=== PATIENT | female | born 1945 | race Caucasian/White ===

== ENCOUNTER 2025-06-12 11:32 | Emergency (ER) | payer OTHER, BC ==
[~2025-06-12] VITALS: Ht 152.4 cm; Wt 46.3 kg
[2025-06-12] MEDS ORDERED: TOPROL XL100 M1 PO (12:41)
[2025-06-12 14:04] LABS: BASO % 0.2 % (0.1-1.2); EOS # 0.05 (0.04-0.54); EOS % 0.3 % (0.7-7.0); LYMPH # 0.48 (1.18-3.74); LYMPH % 3.3 % (19.3-53.1); MEAN PLATELET VOLUME 11.80 fl (9.4-12.4); MONO # 3.72 (0.24-0.82); NEUT # 10.24 (1.56-6.13); NEUT % 69.8 % (34.0-71.1); RED CELL DISTRIBUTION WIDTH 16.3 % (11.6-14.4)
[2025-06-12 14:15] LABS: MONO % 25.4 % (4.7-12.5)
[2025-06-12 14:34] LABS: INR 1.09
[2025-06-12] MEDS ORDERED: ONDANSETRON HCL 2 MG/ML VIAL IV STA (15:20)
[2025-06-12] MEDS ORDERED: MORPHINE SULFATE 4 MG/ML CARTRIDGE IV STA (15:20)
[2025-06-12] MEDS ORDERED: FAMOTIDINE/PF 20 MG/2 ML VIAL IV STA (15:20)
[2025-06-12] MEDS ORDERED: 0.9 % SODIUM CHLORIDE 1,000 ML IV SCH (15:30)
[2025-06-12 15:40] LABS: ALT/SGPT 271.0 U/L (12-78); AST/SGOT 218.0 U/L (15-37); BILIRUBIN TOTAL 9.29 mg/dL (0.3-1.2); BUN CREA RATIO 30.0 (7.0-25.0); CREATININE SERUM 0.94 mg/dL (0.55-1.02); GFR 57.15; GLOBULINA 4.1 G/DL (2.4-3.5); GLUCOSE FASTING 95.0 mg/dL (65-100); OSMOLALITY SERUM 287.0 MOSM/KG (275-295)
[2025-06-12] MEDS ORDERED: ONDANSETRON HCL 2 MG/ML VIAL ONE (15:44)
[2025-06-12] MEDS ORDERED: FAMOTIDINE/PF 20 MG/2 ML VIAL ONE (15:45)
[2025-06-12 15:46] LABS: URINE APPEARANCE Turbid; URINE BILIRRUBIN Large (NEGATIVE); URINE BLOOD Moderate; URINE COLOR Orange; URINE GLUCOSE Negative (NEGATIVE); URINE LEUKOCYTE Moderate; URINE NITRATE Positive; URINE UROBILINOGEN 1.0 E.U./dl
[2025-06-12 15:50] LABS: URINE BACTERIA 919.1 uL (0.0-1933); URINE CAST 3.66 uL (0.0-1.40); URINE EPITHELIAL CELLS 94.7 uL (0.0-38.8); URINE RBC 565.9 uL (0.0-20.8); URINE WBC 13.0 uL (0.0-23.2)
[2025-06-12 16:59] LABS: TYPE CELLS SQUAMOUS; URINE KETONE 40 (NEGATIVE); URINE PROTEIN 300 (NEGATIVE)
== END 2025-06-13 02:04 | disposition designated cancer center or children's hospital (05) ==
LOC: ER 11:32
PROVIDERS: Physician Assistant Medical
DX: K85.90 Acute pancreatitis without necrosis or infection, unspecified (principal); R10.13 Epigastric pain; I49.8 Other specified cardiac arrhythmias; E78.00 Pure hypercholesterolemia, unspecified; D69.6 Thrombocytopenia, unspecified; I10 Essential (primary) hypertension; I11.9 Hypertensive heart disease without heart failure; R17 Unspecified jaundice; K81.9 Cholecystitis, unspecified; E80.6 Other disorders of bilirubin metabolism; K80.00 Calculus of gallbladder with acute cholecystitis without obstruction
CPT/HCPCS: 36415; 71046; 74177; 76700; 96365; 96366; 99284; J2270; J2405; J3490; J7030; Q9965